=== PATIENT | female | born 1975 | race Two or more races ===

== ENCOUNTER 2016-10-06 07:10 | Emergency (ER) | payer OTHER, MEDICAID ==
[~2016-10-06] VITALS: Ht 152.4 cm; Wt 113.4 kg
[~2016-10-06 07:10] MED LIST: ASPI81CH49 PO; BENA20TA4 PO; CLOP75TA28 PO; INSLANTI SC; SERT25TA84 PO; SIMV-8 PO
[2016-10-06 07:39] VITALS: BP 0/0
[2016-10-06] MEDS ORDERED: SODIUM BICARBONATE 8.4% INJ 50ML SYRINGE IV ONE (23:45)
[2016-10-06] MEDS ORDERED: EPINEPHrine HCL 1 MG/10 ML SYRG IV ONE (23:45)
== END 2016-10-06 15:22 | disposition expired ==
LOC: ER 07:10 → EDBD 07:10 → ER 15:22
DX: I46.9 Cardiac arrest, cause unspecified (principal); E11.9 Type 2 diabetes mellitus without complications; I10 Essential (primary) hypertension; Z88.0 Allergy status to penicillin; Z88.1 Allergy status to other antibiotic agents; Z88.6 Allergy status to analgesic agent; Z86.73 Personal history of transient ischemic attack (TIA), and cerebral infarction without residual deficits; Z95.1 Presence of aortocoronary bypass graft
CPT/HCPCS: 31500; 92950; 99285; J0171